=== PATIENT | female | born 1980 | race Native Hawaiian/Other Pacific Islander ===

== ENCOUNTER 2018-07-22 13:08 | Emergency (ER) | payer OTHER ==
[~2018-07-22] VITALS: Ht 152.4 cm; Wt 83.9 kg
[2018-07-22 14:35] LABS: PLATELET COUNT 237 K/uL (152-353)
[2018-07-22 14:43] LABS: POTASSIUM 3.7 mmol/L (3.6-5.2)
[2018-07-22 17:32] VITALS: BP 116/70; TEMP 98.8
== END 2018-07-22 17:32 | disposition home or self-care (01) ==
LOC: ED 13:08
PROVIDERS: Family Medicine
DX: J02.0 Streptococcal pharyngitis (principal); B35.4 Tinea corporis
CPT/HCPCS: 36415; 80053; 81000; 85027; 87502; 87651; 96374; 99283; J2405; J2550